=== PATIENT | male | born 1950 | race African-American/Black ===

== ENCOUNTER 2018-10-29 05:12 | Inpatient (IN) ==
[2018-10-20 13:41] LABS: Basophils # 0.1 10*3/uL (0.0-0.2); Basophils % 1.2 % (0.0-0.8); Eosinophils # 0.3 10*3/uL (0.0-0.87); Eosinophils % 4.5 % (0.00-10.9); Hemoglobin 12.1 GM/DL (14.0-18.0); Immature Granulocytes % 0.3 %; Immature Granulocytes Absolute 0.02 #; Lymphocytes # 2.6 10*3/uL (1.4-4.0); Lymphocytes % 38.3 % (21.2-54.2); Mean Corpuscular HGB Conc 31.8 GM/DL (32-36); Mean Corpuscular Volume 90.3 FL (87-102); Mean Platelet Volume 9.9 FL (9.6-12.0); Monocytes % 6.8 % (1.7-12.7); Neutrophils % 48.9 % (38.7-73.9); Platelet Count 196 T/CUMM (130-400); Red Blood Count 4.21 MC/CUMM (3.8-5.5); Red Cell Distribution Width 12.8 % (9.3-17.3); White Blood Count 6.9 T/CUMM (4-12)
[2018-10-20 14:11] LABS: Alanine Aminotransferase 46 U/L (16-61); Albumin 3.6 G/DL (3.4-5.0); Alkaline Phosphatase 86 U/L (45-117); Aspartate Amino Transferase 24 U/L (0-37); Bilirubin,Total < 0.39 MG/DL (0.2-1.0); Blood Urea Nitrogen 8 MG/DL (7-18); Calcium 9.5 MG/DL (8.5-10.1); Glucose 91 MG/DL (74-106); Osmolality,Calculated 274.5 MOS/KG (273-304); Total Protein 7.5 G/DL (6.4-8.3)
[2018-10-29] MEDS ORDERED: SODIUM PHOSPHATE ENEMA 133 ML BOTTLE RECTAL ONE (05:44)
[2018-10-29] MEDS ORDERED: cefTRIAXone 1,000 MG VIAL ONE (05:44)
[2018-10-29] MEDS ORDERED: cefTRIAXone 1,000 MG in SYRINGE 1 EACH IV ONE (06:00)
[2018-10-29] MEDS: LACTATED RINGERS 1,000 ML IV SCH ×2 (06:45→08:45)
[2018-10-29] MEDS ORDERED: LACTULOSE 20 GM/30 ML UDCUP PO PRN (12:13)
[2018-10-29] MEDS ORDERED: ONDANSETRON 4 MG/2 ML VIAL IV PRN ×2 (12:13→12:55)
[2018-10-29] MEDS ORDERED: diphenhydrAMINE 50 MG/1 ML VIAL IV PRN (12:13)
[2018-10-29] MEDS ORDERED: ROPIVACAINE 0.5% 30 ML VIAL ONE ×2 (12:14)
[2018-10-29] MEDS ORDERED: DEXAMETHASONE 4 MG/1 ML VIAL ONE (12:14)
[2018-10-29] MEDS ORDERED: hydrALAZINE 25 MG TABLET PO PRN (12:20)
[2018-10-29 12:35] LABS: Apearance,Urine CLEAR (Clear); Bilirubin,Urine Negative (Negative); Blood, Urine Negative (Negative); Glucose,Urine (UA) Negative (Negative); Ketones,Urine Negative (Negative); Mucus,Urine Occasional /LPF (Occasional); Nitrite,Urine Negative (Negative); Protein,Urine Negative; RBC,Urine 4 /HPF (0-4); Squamous Epithelial Cell,Urine Occasional /HPF (0-10); Urine Color Straw (Yellow); Urine Specific Gravity 1.016 (1.001-1.035); Urine Urobilinogen < 2.0 EU/DL (0.2-1.0); WBC,Urine <1 /HPF (0-6)
[2018-10-29] MEDS ORDERED: NEOSTIGMINE 10 MG/10 ML VIAL ONE ×2 (12:54→12:55)
[2018-10-29] MEDS ORDERED: ONDANSETRON 4 MG/2 ML VIAL ONE ×2 (12:54→13:01)
[2018-10-29] MEDS ORDERED: PROPOFOL 200 MG/20 ML VIAL IV ONE (12:54)
[2018-10-29] MEDS ORDERED: SEVOFLURANE 1 UNIT/15 MINUTE INH ONE (12:54)
[2018-10-29] MEDS ORDERED: GLYCOPYRROLATE 0.4 MG/2 ML VIAL ONE (12:54)
[2018-10-29] MEDS ORDERED: ACETAMINOPHEN 1,000 MG/100 ML VIAL IV ONE (12:55)
[2018-10-29] MEDS ORDERED: fentaNYL 100 MCG/2 ML VIAL ONE ×2 (12:56→13:00)
[2018-10-29] MEDS ORDERED: MIDAZOLAM 2 MG/2 ML VIAL ONE (12:56)
[2018-10-29] MEDS ORDERED: LACTATED RINGERS 1,000 ML IV ONE (12:56)
[2018-10-29] MEDS ORDERED: MEPERIDINE 25 MG/1 ML VIAL IV PRN (12:57)
[2018-10-29] MEDS ORDERED: ALBUTEROL/IPRATROPIUM 3 ML NEB RESP TX ONE (12:59)
[2018-10-29] MEDS ORDERED: MEPERIDINE 25 MG/1 ML VIAL ONE (13:01)
[2018-10-29 13:23] LABS: Basophils % 0.4 % (0.0-0.8); Eosinophils # 0.1 10*3/uL (0.0-0.87); Hematocrit 39.6 VOL% (42.0-52.0); Hemoglobin 12.3 GM/DL (14.0-18.0); Immature Granulocytes % 0.5 %; Immature Granulocytes Absolute 0.05 #; Lymphocytes # 2.2 10*3/uL (1.4-4.0); Lymphocytes % 20.3 % (21.2-54.2); Mean Corpuscular HGB Conc 31.1 GM/DL (32-36); Mean Corpuscular Volume 92.3 FL (87-102); Mean Platelet Volume 10.4 FL (9.6-12.0); Monocytes % 3.9 % (1.7-12.7); Neutrophils % 73.9 % (38.7-73.9); Platelet Count 201 T/CUMM (130-400); Red Blood Count 4.29 MC/CUMM (3.8-5.5); Red Cell Distribution Width 13.2 % (9.3-17.3); White Blood Count 10.6 T/CUMM (4-12)
[2018-10-29] MEDS ORDERED: hydrALAZINE 20 MG/1 ML VIAL IV ONE (13:26)
[2018-10-29] MEDS: HYDROmorphone 2 MG/1 ML VIAL IV PRN ×2 (13:40→13:45)
[2018-10-29 13:41] LABS: Calcium 9.2 MG/DL (8.5-10.1); Osmolality,Calculated 281.4 MOS/KG (273-304)
[2018-10-29] MEDS ORDERED: HYDROmorphone 2 MG/1 ML VIAL ONE (13:41)
[2018-10-29] MEDS: SODIUM CHLORIDE 0.9% 1,000 ML IV SCH ×2 (15:20→22:26)
[2018-10-29] MEDS: ACETAMINOPHEN 325 MG TABLET PO SCH ×2 (15:20→20:45)
[2018-10-29] MEDS: oxyCODONE/ACETAMINOPHEN 5-325 MG TABLET PO PRN ×2 (16:50→22:47)
[2018-10-29] MEDS: DOCUSATE SODIUM 100 MG CAPSULE PO SCH (20:46)
[2018-10-29] MEDS: FAMOTIDINE 20 MG TABLET PO SCH (20:46)
[2018-10-29] MEDS: ATORVASTATIN 40 MG TABLET PO SCH (20:46)
[2018-10-29] MEDS: SERTRALINE 100 MG TABLET PO SCH (20:46)
[2018-10-30] MEDS: oxyCODONE/ACETAMINOPHEN 5-325 MG TABLET PO PRN ×2 (03:23→12:40)
[2018-10-30] MEDS: ACETAMINOPHEN 325 MG TABLET PO SCH ×4 (03:23→21:26)
[2018-10-30 06:01] LABS: Basophils % 0.2 % (0.0-0.8); Eosinophils % 0.3 % (0.00-10.9); Hematocrit 35.2 VOL% (42.0-52.0); Hemoglobin 11.4 GM/DL (14.0-18.0); Immature Granulocytes % 0.2 %; Immature Granulocytes Absolute 0.02 #; Lymphocytes # 1.6 10*3/uL (1.4-4.0); Lymphocytes % 18.1 % (21.2-54.2); Mean Corpuscular HGB Conc 32.4 GM/DL (32-36); Mean Corpuscular Volume 89.6 FL (87-102); Mean Platelet Volume 10.8 FL (9.6-12.0); Monocytes % 6.5 % (1.7-12.7); Neutrophils % 74.7 % (38.7-73.9); Platelet Count 196 T/CUMM (130-400); Red Blood Count 3.93 MC/CUMM (3.8-5.5); Red Cell Distribution Width 13.2 % (9.3-17.3); White Blood Count 8.8 T/CUMM (4-12)
[2018-10-30 06:23] LABS: Calcium 8.7 MG/DL (8.5-10.1); Osmolality,Calculated 271.8 MOS/KG (273-304)
[2018-10-30] MEDS: DOCUSATE SODIUM 100 MG CAPSULE PO SCH ×2 (09:26→21:26)
[2018-10-30] MEDS ORDERED: cefTRIAXone 1,000 MG in SYRINGE 1 EACH IV SCH (10:16)
[2018-10-30] MEDS: SODIUM CHLORIDE 0.9% 1,000 ML IV SCH (14:59)
[2018-10-30] MEDS ORDERED: SODIUM CHLORIDE 0.9% 1,000 ML IV SCH (17:30)
[2018-10-30] MEDS: ATORVASTATIN 40 MG TABLET PO SCH (21:25)
[2018-10-30] MEDS: FAMOTIDINE 20 MG TABLET PO SCH (21:25)
[2018-10-30] MEDS: SERTRALINE 100 MG TABLET PO SCH (21:26)
[2018-10-31] MEDS: ACETAMINOPHEN 325 MG TABLET PO SCH ×4 (03:57→21:14)
[2018-10-31 06:06] LABS: Basophils % 0.4 % (0.0-0.8); Eosinophils # 0.2 10*3/uL (0.0-0.87); Eosinophils % 2.2 % (0.00-10.9); Hematocrit 40.4 VOL% (42.0-52.0); Immature Granulocytes % 0.3 %; Immature Granulocytes Absolute 0.02 #; Lymphocytes # 1.3 10*3/uL (1.4-4.0); Lymphocytes % 15.9 % (21.2-54.2); Mean Corpuscular HGB Conc 32.2 GM/DL (32-36); Mean Corpuscular Volume 89.6 FL (87-102); Mean Platelet Volume 10.6 FL (9.6-12.0); Monocytes % 4.8 % (1.7-12.7); Neutrophils % 76.4 % (38.7-73.9); Platelet Count 200 T/CUMM (130-400); Red Blood Count 4.51 MC/CUMM (3.8-5.5); Red Cell Distribution Width 13.2 % (9.3-17.3); White Blood Count 7.9 T/CUMM (4-12)
[2018-10-31 06:23] LABS: Calcium 9.1 MG/DL (8.5-10.1)
[2018-10-31] MEDS ORDERED: POTASSIUM CHLORIDE 20 MEQ TABLET PO ONE (06:49)
[2018-10-31] MEDS ORDERED: MAGNESIUM SULF RIDER 2 GM in PREMIX 1 EACH IV PRN (08:57)
[2018-10-31] MEDS ORDERED: MAGNESIUM SULF RIDER 4 GM in PREMIX 1 EACH IV PRN (08:57)
[2018-10-31] MEDS: DOCUSATE SODIUM 100 MG CAPSULE PO SCH ×2 (09:39→21:15)
[2018-10-31] MEDS: DEXT 5% NACL 0.45% KCL 20 MEQ 20 MEQ/1,000 ML BAG IV SCH ×2 (16:20→16:22)
[2018-10-31] MEDS: FAMOTIDINE 20 MG TABLET PO SCH (21:14)
[2018-10-31] MEDS: SERTRALINE 100 MG TABLET PO SCH (21:15)
[2018-10-31] MEDS: ATORVASTATIN 40 MG TABLET PO SCH (21:15)
[2018-11-01] MEDS: DEXT 5% NACL 0.45% KCL 20 MEQ 20 MEQ/1,000 ML BAG IV SCH ×3 (00:34→16:49)
[2018-11-01 05:15] LABS: Basophils % 0.4 % (0.0-0.8); Eosinophils # 0.2 10*3/uL (0.0-0.87); Eosinophils % 3.3 % (0.00-10.9); Hematocrit 38.9 VOL% (42.0-52.0); Hemoglobin 12.6 GM/DL (14.0-18.0); Immature Granulocytes % 0.1 %; Immature Granulocytes Absolute 0.01 #; Lymphocytes # 1.5 10*3/uL (1.4-4.0); Lymphocytes % 20.9 % (21.2-54.2); Mean Corpuscular HGB Conc 32.4 GM/DL (32-36); Mean Corpuscular Volume 89.2 FL (87-102); Mean Platelet Volume 10.4 FL (9.6-12.0); Monocytes % 6.8 % (1.7-12.7); Neutrophils % 68.5 % (38.7-73.9); Platelet Count 208 T/CUMM (130-400); Red Blood Count 4.36 MC/CUMM (3.8-5.5); Red Cell Distribution Width 12.9 % (9.3-17.3); White Blood Count 7.2 T/CUMM (4-12)
[2018-11-01 05:45] LABS: Calcium 9.2 MG/DL (8.5-10.1)
[2018-11-01] MEDS: ACETAMINOPHEN 325 MG TABLET PO SCH ×4 (06:22→20:45)
[2018-11-01] MEDS ORDERED: POLYETHYLENE GLYCOL POWDER 17 GM PACK PO SCH (09:00)
[2018-11-01] MEDS: DOCUSATE SODIUM 100 MG CAPSULE PO SCH ×2 (09:03→20:46)
[2018-11-01] MEDS: LISINOPRIL 10 MG TABLET PO SCH (09:07)
[2018-11-01] MEDS: METOCLOPRAMIDE 10 MG/2 ML VIAL IV SCH ×3 (11:47→17:20)
[2018-11-01] MEDS: FAMOTIDINE 20 MG TABLET PO SCH (20:45)
[2018-11-01] MEDS: ATORVASTATIN 40 MG TABLET PO SCH (20:46)
[2018-11-01] MEDS: SERTRALINE 100 MG TABLET PO SCH (20:46)
[2018-11-01] MEDS: HYDROmorphone 2 MG/1 ML VIAL IV PRN (20:48)
[2018-11-02] MEDS: METOCLOPRAMIDE 10 MG/2 ML VIAL IV SCH ×6 (00:51→23:40)
[2018-11-02] MEDS: DEXT 5% NACL 0.45% KCL 20 MEQ 20 MEQ/1,000 ML BAG IV SCH ×3 (00:51→16:49)
[2018-11-02] MEDS: HYDROmorphone 2 MG/1 ML VIAL IV PRN (03:32)
[2018-11-02] MEDS: ACETAMINOPHEN 325 MG TABLET PO SCH ×4 (03:34→21:41)
[2018-11-02 06:05] LABS: Basophils % 0.4 % (0.0-0.8); Eosinophils # 0.3 10*3/uL (0.0-0.87); Eosinophils % 3.7 % (0.00-10.9); Hematocrit 37.2 VOL% (42.0-52.0); Hemoglobin 11.9 GM/DL (14.0-18.0); Immature Granulocytes % 0.4 %; Immature Granulocytes Absolute 0.03 #; Lymphocytes # 1.9 10*3/uL (1.4-4.0); Lymphocytes % 28.5 % (21.2-54.2); Mean Corpuscular Volume 89.6 FL (87-102); Mean Platelet Volume 10.2 FL (9.6-12.0); Monocytes % 6.5 % (1.7-12.7); Neutrophils % 60.5 % (38.7-73.9); Platelet Count 201 T/CUMM (130-400); Red Blood Count 4.15 MC/CUMM (3.8-5.5); White Blood Count 6.8 T/CUMM (4-12)
[2018-11-02 06:43] LABS: Calcium 9.2 MG/DL (8.5-10.1); Osmolality,Calculated 276.5 MOS/KG (273-304)
[2018-11-02] MEDS: DOCUSATE SODIUM 100 MG CAPSULE PO SCH ×2 (08:26→21:40)
[2018-11-02] MEDS: LISINOPRIL 10 MG TABLET PO SCH (08:26)
[2018-11-02] MEDS: FAMOTIDINE 20 MG TABLET PO SCH (21:40)
[2018-11-02] MEDS: SERTRALINE 100 MG TABLET PO SCH (21:40)
[2018-11-02] MEDS: ATORVASTATIN 40 MG TABLET PO SCH (21:41)
[2018-11-03] MEDS: ACETAMINOPHEN 325 MG TABLET PO SCH ×4 (02:36→20:33)
[2018-11-03 05:01] LABS: Basophils % 0.6 % (0.0-0.8); Eosinophils # 0.3 10*3/uL (0.0-0.87); Eosinophils % 3.8 % (0.00-10.9); Hematocrit 37.1 VOL% (42.0-52.0); Hemoglobin 11.8 GM/DL (14.0-18.0); Immature Granulocytes % 0.3 %; Immature Granulocytes Absolute 0.02 #; Lymphocytes # 2.4 10*3/uL (1.4-4.0); Lymphocytes % 34.3 % (21.2-54.2); Mean Corpuscular HGB Conc 31.8 GM/DL (32-36); Mean Corpuscular Volume 89.4 FL (87-102); Mean Platelet Volume 10.3 FL (9.6-12.0); Monocytes % 6.3 % (1.7-12.7); Neutrophils % 54.7 % (38.7-73.9); Platelet Count 222 T/CUMM (130-400); Red Blood Count 4.15 MC/CUMM (3.8-5.5); Red Cell Distribution Width 12.8 % (9.3-17.3); White Blood Count 7.1 T/CUMM (4-12)
[2018-11-03] MEDS: METOCLOPRAMIDE 10 MG/2 ML VIAL IV SCH ×3 (05:08→17:16)
[2018-11-03 05:22] LABS: Calcium 9.1 MG/DL (8.5-10.1); Osmolality,Calculated 273.7 MOS/KG (273-304)
[2018-11-03] MEDS: DOCUSATE SODIUM 100 MG CAPSULE PO SCH ×2 (08:22→20:33)
[2018-11-03] MEDS: LISINOPRIL 10 MG TABLET PO SCH (08:22)
[2018-11-03] MEDS: ATORVASTATIN 40 MG TABLET PO SCH (20:32)
[2018-11-03] MEDS: SERTRALINE 100 MG TABLET PO SCH (20:32)
[2018-11-03] MEDS: FAMOTIDINE 20 MG TABLET PO SCH (20:32)
[2018-11-04] MEDS: METOCLOPRAMIDE 10 MG/2 ML VIAL IV SCH ×3 (00:55→11:19)
[2018-11-04] MEDS: ACETAMINOPHEN 325 MG TABLET PO SCH ×2 (03:15→08:09)
[2018-11-04 07:44] VITALS: BP 141/67
[2018-11-04] MEDS: DOCUSATE SODIUM 100 MG CAPSULE PO SCH (08:09)
[2018-11-04] MEDS: LISINOPRIL 10 MG TABLET PO SCH (08:09)
== END 2018-11-04 13:37 | disposition home or self-care (01) | DRG 707 ==
LOC: N.SDSINP 05:12 → N.OR 05:12 → N.SDSINP 12:13 → N.5E 14:12
PROVIDERS: ADMIT Surgery; ATTEND Surgery

== ENCOUNTER 2021-10-08 15:25 | Inpatient (IN) ==
[2021-10-08] MEDS ORDERED: MECLIZINE 25 MG TABLET PO STA (15:57)
[2021-10-08 16:08] LABS: Basophils # 0.1 10*3/uL (0.0-0.2); Basophils % 0.6 % (0.0-0.8); Eosinophils # 0.2 10*3/uL (0.0-0.87); Eosinophils % 2.2 % (0.00-10.9); Hematocrit 40.4 VOL% (42.0-52.0); Hemoglobin 13.1 GM/DL (14.0-18.0); Immature Granulocytes % 0.1 %; Immature Granulocytes Absolute 0.01 #; Lymphocytes % 24.8 % (21.2-54.2); Mean Corpuscular HGB Conc 32.4 GM/DL (32-36); Mean Corpuscular Volume 88.4 FL (87-102); Mean Platelet Volume 10.4 FL (9.6-12.0); Monocytes # 0.4 10*3/uL (0.11-0.8); Monocytes % 4.8 % (1.7-12.7); Neutrophils % 67.5 % (38.7-73.9); Platelet Count 240 T/CUMM (130-400); Red Blood Count 4.57 MC/CUMM (3.8-5.5); Red Cell Distribution Width 13.3 % (9.3-17.3); White Blood Count 8.1 T/CUMM (4-12)
[2021-10-08 16:19] LABS: INR 0.9; PT Patient Result 10.1 SECS (10.5-12.0)
[2021-10-08 16:34] LABS: Mucus,Urine Many /LPF (Occasional); RBC,Urine 1 /HPF (0-4); Squamous Epithelial Cell,Urine Occasional /HPF (0-10); Urine Appearance Clear (Clear); Urine Color Yellow (Yellow)
[2021-10-08 16:35] LABS: Bilirubin,Urine Negative (Negative); Blood, Urine Negative (Negative); Glucose,Urine (UA) Negative (Negative); Ketones,Urine Trace mg/dL (Negative); Nitrite,Urine Negative (Negative); Protein,Urine 30 mg/dL (Negative); Urine Specific Gravity > 1.030 (1.001-1.035); Urine Urobilinogen 0.2 eU/dL (<2.0)
[2021-10-08] MEDS ORDERED: ASPIRIN 325 MG TABLET PO STA (16:42)
[2021-10-08 16:49] LABS: Alanine Aminotransferase 36 U/L (16-61); Albumin 3.8 G/DL (3.4-5.0); Alkaline Phosphatase 123 U/L (45-117); Aspartate Amino Transferase 25 U/L (0-37); Bilirubin,Total < 0.39 MG/DL (0.20-1.00); Blood Urea Nitrogen 19 MG/DL (7-18); Calcium 10.1 MG/DL (8.5-10.1); Carbon Dioxide 29 MMOL/L (21-32); Chloride 106 MMOL/L (98-107); Glucose 107 MG/DL (74-106); Osmolality,Calculated 284.1 MOS/KG (273-304); Potassium 3.8 MMOL/L (3.5-5.1); Sodium 142 MMOL/L (136-145); Total Protein 7.7 G/DL (6.4-8.2)
[2021-10-08] MEDS ORDERED: hydrALAZINE 20 MG/1 ML VIAL IV PRN (17:50)
[2021-10-08] MEDS ORDERED: DOCUSATE SODIUM 100 MG CAPSULE PO PRN (17:50)
[2021-10-08] MEDS ORDERED: GLUCAGON 1 MG VIAL IM PRN (17:50)
[2021-10-08] MEDS ORDERED: ALBUTEROL/IPRATROPIUM 3 ML NEB RESP TX PRN (17:50)
[2021-10-08] MEDS ORDERED: ONDANSETRON 4 MG/2 ML VIAL IV PRN (17:50)
[2021-10-08] MEDS ORDERED: ACETAMINOPHEN 325 MG TABLET PO PRN (17:50)
[2021-10-08] MEDS ORDERED: DEXTROSE 10% 250 ML BAG IV PRN (17:57)
[2021-10-08 18:04] LABS: Barbiturates Screen,Urine Negative (Negative); Benzodiazepines Screen,Urine Positive (Negative); Cannabinoid Screen,Urine Negative (Negative); Opiate Screen,Urine Negative (Negative); Phencyclidine Screen,Urine Negative (Negative)
[2021-10-08] MEDS: ENOXAPARIN 40 MG/0.4 ML SYRINGE SUBCUT SCH (21:15)
[2021-10-08] MEDS: DOCUSATE SODIUM 100 MG CAPSULE PO SCH (21:15)
[2021-10-08] MEDS: TAMSULOSIN 0.4 MG CAPSULE PO SCH (21:15)
[2021-10-08] MEDS: LACTATED RINGERS 1,000 ML IV SCH (21:16)
[2021-10-08] MEDS: ATORVASTATIN 40 MG TABLET PO SCH (22:01)
[2021-10-08] MEDS: INSULIN REGULAR 100 UNIT/ML SUBCUT SCH (22:17)
[2021-10-09 05:16] LABS: Basophils # 0.1 10*3/uL (0.0-0.2); Basophils % 0.8 % (0.0-0.8); Eosinophils # 0.2 10*3/uL (0.0-0.87); Hematocrit 37.4 VOL% (42.0-52.0); Immature Granulocytes % 0.3 %; Immature Granulocytes Absolute 0.02 #; Lymphocytes # 2.6 10*3/uL (1.4-4.0); Mean Corpuscular HGB Conc 32.1 GM/DL (32-36); Mean Corpuscular Volume 89.7 FL (87-102); Mean Platelet Volume 10.6 FL (9.6-12.0); Monocytes # 0.4 10*3/uL (0.11-0.8); Monocytes % 5.8 % (1.7-12.7); Neutrophils % 49.1 % (38.7-73.9); Platelet Count 206 T/CUMM (130-400); Red Blood Count 4.17 MC/CUMM (3.8-5.5); Red Cell Distribution Width 13.3 % (9.3-17.3); White Blood Count 6.4 T/CUMM (4-12)
[2021-10-09] MEDS: LACTATED RINGERS 1,000 ML IV SCH ×3 (05:29→15:06)
[2021-10-09 05:51] LABS: Alanine Aminotransferase 29 U/L (16-61); Albumin 3.4 G/DL (3.4-5.0); Alkaline Phosphatase 82 U/L (45-117); Aspartate Amino Transferase 20 U/L (0-37); Bilirubin,Total < 0.39 MG/DL (0.20-1.00); Blood Urea Nitrogen 17 MG/DL (7-18); Calcium 9.5 MG/DL (8.5-10.1); Carbon Dioxide 26 MMOL/L (21-32); Chloride 105 MMOL/L (98-107); Cholesterol 155 MG/DL (50-200); Glucose 100 MG/DL (74-106); HDL Cholesterol 47 MG/DL (40-60); Osmolality,Calculated 274.8 MOS/KG (273-304); Potassium 3.6 MMOL/L (3.5-5.1); Sodium 137 MMOL/L (136-145); Triglycerides 145 MG/DL (2-150)
[2021-10-09] MEDS: ASPIRIN CHEW 81 MG TABLET PO SCH (08:50)
[2021-10-09] MEDS: PANTOPRAZOLE 40 MG TABLET PO SCH (08:50)
[2021-10-09] MEDS: DOCUSATE SODIUM 100 MG CAPSULE PO SCH ×2 (08:50→21:13)
[2021-10-09] MEDS: INSULIN REGULAR 100 UNIT/ML SUBCUT SCH ×4 (09:04→21:14)
[2021-10-09] MEDS: TAMSULOSIN 0.4 MG CAPSULE PO SCH (17:32)
[2021-10-09] MEDS ORDERED: guaiFENesin 200 MG/10 ML UDCUP PO PRN (20:19)
[2021-10-09] MEDS: ATORVASTATIN 40 MG TABLET PO SCH (21:13)
[2021-10-09] MEDS: ENOXAPARIN 40 MG/0.4 ML SYRINGE SUBCUT SCH (21:14)
[2021-10-10] MEDS: LACTATED RINGERS 1,000 ML IV SCH ×3 (00:28→21:07)
[2021-10-10] MEDS: INSULIN REGULAR 100 UNIT/ML SUBCUT SCH ×4 (07:58→21:06)
[2021-10-10] MEDS: ASPIRIN CHEW 81 MG TABLET PO SCH (08:37)
[2021-10-10] MEDS: DOCUSATE SODIUM 100 MG CAPSULE PO SCH ×2 (08:37→21:06)
[2021-10-10] MEDS: PANTOPRAZOLE 40 MG TABLET PO SCH (08:37)
[2021-10-10] MEDS ORDERED: NICOTINE 21 MG/24 HR PATCH TRANSDERM PRN (11:37)
[2021-10-10] MEDS: TAMSULOSIN 0.4 MG CAPSULE PO SCH (17:23)
[2021-10-10] MEDS: ATORVASTATIN 40 MG TABLET PO SCH (21:05)
[2021-10-10] MEDS: ENOXAPARIN 40 MG/0.4 ML SYRINGE SUBCUT SCH (21:06)
[2021-10-11 04:14] LABS: Basophils % 0.7 % (0.0-0.8); Eosinophils # 0.2 10*3/uL (0.0-0.87); Hematocrit 36.1 VOL% (42.0-52.0); Hemoglobin 11.6 GM/DL (14.0-18.0); Immature Granulocytes % 0.2 %; Immature Granulocytes Absolute 0.01 #; Lymphocytes # 2.4 10*3/uL (1.4-4.0); Mean Corpuscular HGB Conc 32.1 GM/DL (32-36); Mean Corpuscular Volume 88.9 FL (87-102); Mean Platelet Volume 11.3 FL (9.6-12.0); Monocytes # 0.3 10*3/uL (0.11-0.8); Monocytes % 5.2 % (1.7-12.7); Neutrophils % 49.9 % (38.7-73.9); Platelet Count 196 T/CUMM (130-400); Red Blood Count 4.06 MC/CUMM (3.8-5.5)
[2021-10-11 04:33] LABS: Calcium 9.2 MG/DL (8.5-10.1); Osmolality,Calculated 277.5 MOS/KG (273-304); Potassium 3.4 MMOL/L (3.5-5.1)
[2021-10-11] MEDS ORDERED: MAGNESIUM SULF RIDER 2 GM/50 ML PREMIX IV PRN (06:56)
[2021-10-11] MEDS ORDERED: MAGNESIUM SULF RIDER 4 GM/100 ML PREMIX IV PRN (06:56)
[2021-10-11] MEDS ORDERED: POTASSIUM CHLORIDE 20 MEQ TABLET PO PRN (06:56)
[2021-10-11] MEDS: INSULIN REGULAR 100 UNIT/ML SUBCUT SCH ×4 (07:13→21:00)
[2021-10-11] MEDS: ASPIRIN CHEW 81 MG TABLET PO SCH (08:05)
[2021-10-11] MEDS: DOCUSATE SODIUM 100 MG CAPSULE PO SCH ×2 (08:05→21:34)
[2021-10-11] MEDS: PANTOPRAZOLE 40 MG TABLET PO SCH (08:05)
[2021-10-11] MEDS: LACTATED RINGERS 1,000 ML IV SCH (12:02)
[2021-10-11] MEDS: TAMSULOSIN 0.4 MG CAPSULE PO SCH (17:23)
[2021-10-11] MEDS ORDERED: SERTRALINE 100 MG TABLET PO SCH (21:00)
[2021-10-11] MEDS: ENOXAPARIN 40 MG/0.4 ML SYRINGE SUBCUT SCH (21:34)
[2021-10-11] MEDS: ATORVASTATIN 40 MG TABLET PO SCH (21:34)
[2021-10-12 05:28] LABS: Osmolality,Calculated 274.7 MOS/KG (273-304); Potassium 3.7 MMOL/L (3.5-5.1)
[2021-10-12] MEDS: PANTOPRAZOLE 40 MG TABLET PO SCH (08:44)
[2021-10-12] MEDS: ASPIRIN CHEW 81 MG TABLET PO SCH (08:44)
[2021-10-12] MEDS: DOCUSATE SODIUM 100 MG CAPSULE PO SCH (08:46)
[2021-10-12] MEDS: INSULIN REGULAR 100 UNIT/ML SUBCUT SCH ×2 (08:51→11:10)
[2021-10-12] MEDS ORDERED: lisinopriL 10 MG TABLET PO SCH (09:00)
[2021-10-12 15:46] VITALS: BP 120/66
== END 2021-10-12 16:15 | disposition home health service (06) | DRG 65 ==
LOC: N.EDINP 15:25 → N.ED 15:25 → SUATTDRO 17:25 → N.3E 19:00
PROVIDERS: ADMIT Internal Medicine; ATTEND Internal Medicine